=== PATIENT | male | born 1980 | race Caucasian/White ===

== ENCOUNTER → 2017-06-15 | Outpatient (CLI) | payer BC | LOC: KOH-I 15:33 | DX: M25.569 Pain in unspecified knee (principal) | CPT/HCPCS: 73562 ==

== ENCOUNTER → 2017-06-19 | Outpatient (CLI) | payer BC | LOC: KOH-I 13:40 | DX: M25.561 Pain in right knee (principal); M25.461 Effusion, right knee | CPT/HCPCS: 73721 ==

== ENCOUNTER → 2020-12-08 | Outpatient (CLI) | payer BC ==
[~2020-12-08] MED LIST: ASPIR-LOW81 MG PO; BETAPACE 80MG T80 MG PO; LEVOTHYROXINE50 MCG PO; MULTI COMPLETE1 EACH PO; PRINIVIL20 MG PO; ULTRAM50 MG PO; VITAMIN D35000 UNI1 PO; VOLTAREN EC 7575 MG PO; ZOLOFT100 MG PO
[2020-12-08 12:12] LABS: HEMOGLOBIN 15.7 gm/dl (14.0-17.5); RED BLOOD COUNT 4.75 M/UL (4.20-5.50); WHITE BLOOD COUNT 6.7 K/UL (4.5-11.0)
[2020-12-08 12:33] LABS: BUN/CREATININE RATIO 10 (0-10)
[2020-12-15 02:11] LABS: FREE TESTOSTERONE(DIRECT) 8.8 pg/mL (8.7-25.1)
== END ==
LOC: LAB 11:21
PROVIDERS: Internal Medicine
DX: I48.0 Paroxysmal atrial fibrillation (principal); I10 Essential (primary) hypertension; E34.9 Endocrine disorder, unspecified
CPT/HCPCS: 80048; 80061; 80076; 84402; 84403; 84443; 85025

== ENCOUNTER 2021-05-29 13:45 | Emergency (ER) | payer BC ==
[2021-05-29 16:10] LABS: HEMOGLOBIN 14.9 gm/dl (14.0-17.5); RED BLOOD COUNT 4.45 M/UL (4.20-5.50); WHITE BLOOD COUNT 8.1 K/UL (4.5-11.0)
[2021-05-29 16:27] LABS: BUN/CREATININE RATIO 16 (0-10)
== END 2021-05-29 20:00 | disposition home or self-care (01) ==
LOC: ER1 13:45
PROVIDERS: Physician Assistant
DX: R07.89 Other chest pain (principal); I10 Essential (primary) hypertension; E03.9 Hypothyroidism, unspecified
CPT/HCPCS: 71045; 80053; 82550; 82553; 83874; 84484; 85025; 93005; 96374; 96375; 99285; C9113; J1885

== ENCOUNTER → 2021-06-08 | Outpatient (CLI) | payer BC ==
[2021-06-08 11:04] LABS: HEMOGLOBIN 14.4 gm/dl (14.0-17.5); RED BLOOD COUNT 4.54 M/UL (4.20-5.50); WHITE BLOOD COUNT 5.9 K/UL (4.5-11.0)
[2021-06-08 11:34] LABS: BUN/CREATININE RATIO 25 (0-10)
== END ==
LOC: LAB 10:30
PROVIDERS: Internal Medicine
DX: I10 Essential (primary) hypertension (principal)
CPT/HCPCS: 80048; 80061; 80076; 84443; 85025

== ENCOUNTER → 2021-08-22 | Outpatient (CLI) | payer BC | LOC: KOH-I 16:14 | DX: M54.2 Cervicalgia (principal); M54.50 Low back pain, unspecified; S23.9XXA Sprain of unspecified parts of thorax, initial encounter; M47.812 Spondylosis without myelopathy or radiculopathy, cervical region; M47.814 Spondylosis without myelopathy or radiculopathy, thoracic region; M47.816 Spondylosis without myelopathy or radiculopathy, lumbar region | CPT/HCPCS: 72050; 72070; 72110 ==